=== PATIENT | female | born 1960 | race Caucasian/White ===

== ENCOUNTER 2020-04-04 08:43 | Day surgery (SDC) | payer BC ==
[~2020-04-04] VITALS: Ht 180.3 cm; Wt 166.2 kg
[~2020-04-04 08:43] MED LIST: ALORA; ASPIR 8181 MG PO; Aspir 8181 MG; ESTRADIOL1 EAC3 TOP; FISH OIL + D31 EACH; Fish Oil 10001000 MG PO; MAGNESIUM OXID500 MG; MAGNESIUM250 MG PO; OMEP20ER; OMEP20ER PO; PSEU120ER; Vitamin D2000 UNIT; Vitamin D2000 UNIT PO
== END 2020-04-04 10:39 | disposition home or self-care (01) ==
LOC: ORSCSDS 08:43
PROVIDERS: Surgery
PROC: 0DJD8ZZ Inspection of Lower Intestinal Tract, Via Natural or Artificial Opening Endoscopic (ICD-10-PCS; principal; 2020-04-04 09:45)
DX: Z12.11 Encounter for screening for malignant neoplasm of colon (principal); K57.30 Diverticulosis of large intestine without perforation or abscess without bleeding; Z80.0 Family history of malignant neoplasm of digestive organs; J45.909 Unspecified asthma, uncomplicated; Z79.82 Long term (current) use of aspirin; Z79.899 Other long term (current) drug therapy
CPT/HCPCS: J7120